=== PATIENT | female | born 1995 | race Caucasian/White ===

== ENCOUNTER → 2017-04-06 | Outpatient (CLI) | payer MEDICAID ==
--- NOTE | 2017-04-06 20:27 | EKG REPORT ---
SEVERITY:- ABNORMAL ECG - SINUS TACHYCARDIA PROBABLE LEFT VENTRICULAR HYPERTROPHY : Confirmed by: David Wolff MD 06-Apr-2017 20:26:37
== END ==
LOC: OD 14:58
PROVIDERS: ATTEND Midwife
DX: F11.19 Opioid abuse with unspecified opioid-induced disorder (principal)
CPT/HCPCS: 93005; 93010

== ENCOUNTER 2017-04-14 15:32 | Outpatient (CLI) | payer MEDICAID ==
--- NOTE | 2017-04-14 16:21 | Non Stress Test Report ---
Non Stress Test Datetime Report Generated by CPN: 04/14/2017 16:21 DEMOGRAPHIC EGA NST: 35.5 INDICATION Indication for Study: Ordered by Provider MONITORING Monitor Explained: Monitor Explained; Test Explained; Patient Verbalized Understanding Time on Monitor: 04/14/2017 15:42 Time off Monitor: 04/14/2017 16:06 NST Duration: 24 NST INTERVENTIONS NST Interventions: PO Hydration Physician Notified NST: P. Leon, CNM BABY A: [id number] BABY A Movement : Present Contraction Frequency : x2 FHR Baseline : 135 Accelerations : 15X15 Decelerations : None Variability : Moderate 6-25bpm NST Review: Meets Criteria for Reactive NST NST Review and Verified By : Joe Joseph RNC NST Results: Reactive NST REPORT Report Trigger: Send Report
== END 2017-04-14 16:09 | disposition home or self-care (01) ==
LOC: LC 15:32
PROVIDERS: ATTEND Student in an Organized Health Care Education/Training Program
PROC: 4A1HXCZ Monitoring of Products of Conception, Cardiac Rate, External Approach (ICD-10-PCS; principal; 2017-04-14)
DX: Z34.93 Encounter for supervision of normal pregnancy, unspecified, third trimester (principal); Z36.89 Encounter for other specified antenatal screening; Z3A.35 35 weeks gestation of pregnancy
CPT/HCPCS: 59025

== ENCOUNTER 2017-04-18 11:11 | Outpatient (CLI) | payer MEDICAID ==
--- NOTE | 2017-04-18 12:15 | Non Stress Test Report ---
Non Stress Test Datetime Report Generated by CPN: 04/18/2017 12:15 DEMOGRAPHIC EGA NST: 36.2 INDICATION Indication for Study: Ordered by Provider MONITORING Monitor Explained: Monitor Explained; Test Explained; Patient Verbalized Understanding Time on Monitor: 04/18/2017 11:41 Time off Monitor: 04/18/2017 12:14 NST Duration: 33 NST INTERVENTIONS NST Interventions: PO Hydration; Meal Given; Reposition Patient BABY A: [id number] BABY A Movement : Present Contraction Frequency : x1 FHR Baseline : 125 Accelerations : 15X15 Decelerations : None Variability : Moderate 6-25bpm NST Review: Meets Criteria for Reactive NST NST Review and Verified By : KIMBERLY Morales Results: Reactive NST REPORT Report Trigger: Send Report
== END 2017-04-18 12:20 | disposition home or self-care (01) ==
LOC: LC 11:11
PROVIDERS: ATTEND Obstetrics & Gynecology
PROC: 4A1HXCZ Monitoring of Products of Conception, Cardiac Rate, External Approach (ICD-10-PCS; principal; 2017-04-18)
DX: Z34.93 Encounter for supervision of normal pregnancy, unspecified, third trimester (principal); Z36.89 Encounter for other specified antenatal screening; Z3A.36 36 weeks gestation of pregnancy
CPT/HCPCS: 59025

== ENCOUNTER 2017-05-04 17:31 | Outpatient (CLI) | payer MEDICAID ==
--- NOTE | 2017-05-04 18:08 | Non Stress Test Report ---
Non Stress Test Datetime Report Generated by CPN: 05/04/2017 18:08 DEMOGRAPHIC EGA NST: 37.4 INDICATION Indication for Study: Decreased Movement; Ordered by Provider MONITORING Monitor Explained: Monitor Explained; Test Explained; Patient Verbalized Understanding Time on Monitor: 04/27/2017 17:40 Time off Monitor: 05/04/2017 18:06 NST Duration: 08421 NST INTERVENTIONS NST Interventions: Reposition Patient Physician Notified NST: Dr Skinner BABY A: [id number] BABY A Movement : Present Contraction Frequency : 0 FHR Baseline : 145 Accelerations : 15X15 Decelerations : None Variability : Moderate 6-25bpm NST Review: Meets Criteria for Reactive NST NST Review and Verified By : BLOSSOM PARDO, RN NST Results: Reactive NST REPORT Report Trigger: Send Report
== END 2017-05-04 18:14 | disposition home or self-care (01) ==
LOC: LC 17:31
PROVIDERS: ATTEND Obstetrics & Gynecology Gynecology
PROC: 4A1HXCZ Monitoring of Products of Conception, Cardiac Rate, External Approach (ICD-10-PCS; principal; 2017-05-04)
DX: O36.8130 Decreased fetal movements, third trimester, not applicable or unspecified (principal); Z3A.38 38 weeks gestation of pregnancy
CPT/HCPCS: 59025

== ENCOUNTER 2017-05-11 20:20 | Inpatient (IN) | payer MEDICAID ==
[2017-05-11 13:09] LABS: ABSOLUTE EOSINOPHILS # (AUTO) 0.1 10^3/uL (0.0-0.6); ABSOLUTE MONOCYTES (AUTO) 0.6 10^3/uL (0.1-1.4); ABSOLUTE NEUT (AUTO) 4.7 10^3/uL (1.7-8.2); BASOPHILS % (AUTO) 0.4 % (0-2); EOSINOPHILS % (AUTO) 1.3 % (0-6); HEMATOCRIT 31.2 % (36.0-47.0); HEMOGLOBIN 9.8 g/dL (12.0-15.5); LYMPHOCYTES % (AUTO) 27.5 % (13-45); MEAN CORPUSCULAR HEMOGLOBIN 22.1 pg (27.0-33.4); MEAN CORPUSCULAR HGB CONC 31.5 g/dL (32.0-36.0); MEAN CORPUSCULAR VOLUME 70 fl (80-97); MONOCYTES % (AUTO) 7.7 % (3-13); PLATELET COUNT 214 10^3/uL (150-450); RED BLOOD COUNT 4.44 10^6/uL (3.72-5.28); RED CELL DISTRIBUTION WIDTH 16.5 % (11.5-14.0); SEGMENTED NEUTROPHILS % (AUTO) 63.1 % (42-78); TOTAL CELLS COUNTED % (AUTO) 100 %; WHITE BLOOD COUNT 7.4 10^3/uL (4.0-10.5)
[2017-05-11 13:15] LABS: APPEARANCE,URINE SLIGHTLY-CLOUDY; BILIRUBIN,URINE NEGATIVE (NEGATIVE); COLOR,URINE YELLOW; GLUCOSE, URINE NEGATIVE (NEGATIVE); KETONES,URINE NEGATIVE (NEGATIVE); LEUKOCYTE ESTERASE,URINE LARGE (NEGATIVE); NITRITE,URINE NEGATIVE (NEGATIVE); PROTEIN,URINE NEGATIVE (NEGATIVE); URINE SPECIFIC GRAVITY 1.009; UROBILINOGEN,URINE NEGATIVE mg/dL (<2.0)
[2017-05-11 13:30] LABS: URINE AMPHETAMINES SCREEN NEGATIVE; URINE BARBITURATES SCREEN NEGATIVE; URINE BENZODIAZEPINES SCREEN NEGATIVE; URINE COCAINE SCREEN NEGATIVE; URINE MARIJUANA (THC) SCREEN NEGATIVE; URINE PHENCYCLIDINE SCREEN NEGATIVE
[2017-05-11 13:46] LABS: URINE METHADONE SCREEN UNCONFIRMED POSITIVE
[2017-05-12] MEDS ORDERED: RINGERS SOLUTION,LACTATED 1,000 ML IV PRN ×2 (02:59→09:14)
[2017-05-12] MEDS ORDERED: OXYTOCIN 10 UNIT/ML VIAL ONE (07:17)
[2017-05-12] MEDS ORDERED: FENTANYL CITRATE INJ/PF 100 MCG/2 ML AMPUL ONE (07:17)
[2017-05-12] MEDS ORDERED: MIDAZOLAM 2 MG/2 ML INJ ONE (07:17)
[2017-05-12] MEDS ORDERED: EPHEDRINE SULFATE INJ 50 MG/1 ML AMPULE ONE (07:17)
[2017-05-12] MEDS ORDERED: OXYTOCIN/NORMAL SALINE 20 UNIT/1,000 ML RTUINJ ONE ×2 (07:17→11:26)
[2017-05-12] MEDS ORDERED: CEFAZOLIN 1 GM/D5W RTU 1 GM/50 ML RTUPB IV ONE (08:30)
[2017-05-12] MEDS ORDERED: CEFAZOLIN 2 GM/D5W RTU 2 GM/50 ML RTUPB IV PRN (08:30)
[2017-05-12] MEDS ORDERED: MORPHINE SULFATE 10 MG/ML INJ IV PRN (08:33)
[2017-05-12] MEDS ORDERED: OXYCODONE-ACETAMINOPHEN 5-325 MG TABLET PO PRN ×3 (08:33→09:14)
[2017-05-12] MEDS ORDERED: FENTANYL CITRATE INJ/PF 100 MCG/2 ML AMPUL IV PRN ×3 (08:33)
[2017-05-12] MEDS ORDERED: PROMETHAZINE HCL INJ 25 MG/1 ML VIAL IV PRN ×3 (08:33→09:14)
[2017-05-12] MEDS ORDERED: MEPERIDINE HCL/PF INJ 25 MG/1 ML DISP.SYRIN IV PRN (08:33)
[2017-05-12] MEDS ORDERED: DIPHENHYDRAMINE HCL 50 MG/ML VIAL IV PRN (08:33)
[2017-05-12] MEDS ORDERED: ACETAMINOPHEN 325 MG TABLET PO PRN (09:14)
[2017-05-12] MEDS ORDERED: OXYTOCIN/NORMAL SALINE 20 UNIT/1,000 ML RTUINJ IV PRN (09:14)
[2017-05-12] MEDS ORDERED: ACETAMINOPHEN 100 ML IV PRN (09:14)
[2017-05-12] MEDS ORDERED: DIPH/PERTUSS(ACELL)/TETANUS VAC/PF 0.5 ML SYR (>=10YO) IM PRN (09:14)
[2017-05-12] MEDS ORDERED: SIMETHICONE 80 MG TAB.CHEW PO PRN (09:14)
[2017-05-12] MEDS ORDERED: MEASLES,MUMPS&RUBELLA VACC/PF 0.5 ML VIAL SUBCUT PRN (09:14)
[2017-05-12] MEDS ORDERED: METHADONE HCL PO SCH (10:00)
[2017-05-12] MEDS ORDERED: KETOROLAC TROMETHAMINE 60 MG/2 ML SDV ONE (10:13)
[2017-05-12] MEDS ORDERED: DEXAMETHASONE SOD PHOSPHATE INJ 4 MG/1 ML VIAL ONE (10:13)
[2017-05-12] MEDS ORDERED: PHENYLEPHRINE HCL INJ/PF 10 MG/1 ML SDV ONE (10:13)
[2017-05-12] MEDS ORDERED: METOCLOPRAMIDE HCL INJ/PF 10 MG/2 ML SDV ONE (10:13)
[2017-05-12] MEDS ORDERED: ONDANSETRON HCL INJ/PF 4 MG/2 ML SDV ONE (10:13)
[2017-05-12] MEDS ORDERED: ACETAMINOPHEN 100 ML IV ONE (10:25)
--- NOTE | 2017-05-12 10:27 | Operative Report ---
Operative Report DATE OF SURGERY: 05/12/17 PREOPERATIVE DIAGNOSIS: Primary for breech and tubal ligation POSTOPERATIVE DIAGNOSIS: Same OPERATION: Primary via low transverse uterine incision and tubal ligation with Filshie clips SURGEON: FRANCESCA DODD ANESTHESIA: Spinal TISSUE REMOVED OR ALTERED: Placenta COMPLICATIONS: None ESTIMATED BLOOD LOSS: 250 INTRAOPERATIVE FINDINGS: Viable female breech position Apgars 8 and 9 weight 9 lbs. 3 oz. PROCEDURE: Patient was taken to the OR and placed in supine position after her spinal anesthesia. She is prepared and draped in sterile fashion. Berger was placed for drainage of the bladder. Low transverse incision was made and carried down the level of the fascia. The fascial incision was made with knife and extended bilaterally with curved Du scissors. The fascia was off the rectus muscles using sharp and blunt dissection. The rectus muscles are in the midline. The peritoneum was entered without incident. Bladder blade was placed in uterine segment was identified. A low transverse incision was made creating a bladder flap. Bladder blade was placed low transverse uterine incision was made with the csafe knife and extended with fingertips. The baby was delivered with some fundal pressure from breech position. Mouth and nose were suctioned free. The cord is doubly clamped and cut. Baby is passed off to the oil analyst in attendance. The placenta was manually extracted with trailing membranes. The uterus was externalized wrapped in a moist lap sponge. Uterine contents wiped free. Uterus was closed with a running locking layer of 0 chromic suture using the second layer to imbricate the first completing a double layer closure of the uterus. The serosa was closed with a running 2-0 chromic stitch. The tubal ligation was carried out by placing Filshie clips across each mid isthmic portion of each fallopian tube. The pelvis was irrigated and suctioned free of fluid the uterus was replaced in the abdomen. The abdominal wall peritoneum was closed with running 2-0 chromic stitch. Fascia was closed with a running 0 Vicryl in 2 segments. Delphine's layer was brought together with 0 plain gut stitch and the skin was closed with running subcuticular 4-0 undyed Vicryl stitch. The wound was dressed mother and baby did well.
--- NOTE | 2017-05-12 11:04 | Delivery Summary ---
Del Sum A-C Datetime Report Generated by CPN: 05/12/2017 11:04 DELIVERY PERSONNEL DELIVERY PERSONNEL: [id number] Delivery Doctor:: Henry Tyler MD Anesthesiologist:: Ric Moreira MD SUPERVISOR PRINTING SHOP:: Lidya Gee CRNA Labor and Delivery Nurse:: Varsha Ansari RNstamp maker Nurse:: MILLY Valencia Regional Construction Manager:: Dr. Eris Fontaine Nurse Practitioner:: NEHAL Spencer Nursery Nurse:: Roger Correa RN Gluing Machine Offbearer/GREEN MARKETING ANALYST: Yesenia Morris CST Gluing Machine Offbearer/GREEN MARKETING ANALYST: Cate Barker, ST MATERNAL INFORMATION Delivery Anesthesia: Spinal Medications After Delivery: Pitocin Bolus-Please Comment; Pitocin Drip 20 Units/1000ml NSS Maternal Complications: None LABOR SUMMARY EDC: 05/14/2017 00:00 No. Babies in Womb: 1 LABOR INFORMATION Steroids Given: None Reason Steroids Not Administered: Not Applicable MEMBRANES Membranes Rupture Method: Artificial Rupture of Membranes: 05/12/2017 09:39 Length of Rupture (hr): 0.00 Amniotic Fluid Color: Clear Amniotic Fluid Amount: Moderate STAGES OF LABOR Stage 3 hr: 0 Stage 3 min: 1 VAGINAL DELIVERY Episiotomy: None Laceration #1: None Laceration Extension #1: N/A Sharps Count Correct: N/A CSECTION DELIVERY Primary Indication: Breech Presentation CSection Urgency: Scheduled CSection Incidence: Primary Labor: N/A Elective: Elective CSection Incision: Lower Uterine Transverse Sterilization Procedure: Ring and Clip BABY A INFORMATION Infant Delivery Date/Time: 05/12/2017 09:39 Method of Delivery: Born in Route : No : N/A Forceps: N/A Vacuum Extraction: N/A Shoulder Dystocia : No PRESENTATION/POSITION BABY A Presentation: Breech Cephalic Presentation: N/A Breech Presentation: Rg PLACENTA INFORMATION BABY A Placenta Delivery Time : 05/12/2017 09:40 Placenta Method of Delivery: Manual Removal Placenta Status: Delivered SCORES BABY A Heart Rate 1 min: >100 bpm Resp Effort 1 min: Good Cry Reflex Irritability 1 min: Cough or Sneeze or Pulls Away Muscle Tone 1 min: Active Motion Color 1 min: Blue/Pale Resuscitation Effort 1 min: Tactile Stimulation SCORE 1 MIN: 8 Heart Rate 5 min: >100 bpm Resp Effort 5 min: Good Cry Reflex Irritability 5 min: Cough or Sneeze or Pulls Away Muscle Tone 5 min: Active Motion Color 5 min: Body [place], Extremities Blue Resuscitation Effort 5 min: N/A SCORE 5 MIN: 9 Resuscitation Effort 10 min: N/A INFORMATION BABY A Gestational Age at Delivery: 39.5 Gestational Status: Full Term- 39- 40.6 Weeks Infant Outcome : Liveborn Condition : Stable Sex: Female IDENTIFICATION BABY A Infant Verification Date/Time: 05/12/2017 09:37 ID Band Number: [id number] Mother's Name Verified: Yes RN Verifying : K Kenney RNC/A Babine RN WEIGHT/LENGTH BABY A Birthweight (gm): 4150 Weight (lb): 9 Weight (oz): 2 Infant Length (in): 21.25 Infant Length (cm): 53.98 CORD INFORMATION BABY A No. Cord Vessels: 3 Nuchal Cord : N/A Cord Blood Taken: Yes-For Eval (Mom's Blood Type - or O+) Suction: Mouth; Nose ASSESSMENT BABY A Complications: None Physical Findings at Delivery: Within Normal Limits Infant Respirations: Appears Normal Skin to Skin: No Regional Construction Manager/ALS Called : Yes Infant Care By: Hayden Correa RN/ Dr. Fontaine Transferred To: Nursery
[2017-05-12] MEDS: DOCUSATE SODIUM 100 MG CAPSULE PO SCH ×2 (11:31→18:14)
[2017-05-12] MEDS: PRENATAL VITAMIN W DHA CAPSULE PO SCH (11:31)
[2017-05-12] MEDS ORDERED: HYDROMORPHONE HCL INJ/PF 2 MG/ML AMPULE ONE (11:54)
[2017-05-12] MEDS: HYDROMORPHONE HCL INJ/PF 2 MG/ML AMPULE IV PRN ×2 (12:20→15:10)
[2017-05-12] MEDS: KETOROLAC TROMETHAMINE INJ/PF 30 MG/1 ML SDV IV SCH ×2 (15:09→22:34)
[2017-05-12] MEDS: OXYCODONE-ACETAMINOPHEN 5-325 MG TABLET PO PRN (17:12)
[2017-05-13] MEDS: OXYCODONE-ACETAMINOPHEN 5-325 MG TABLET PO PRN ×2 (02:50→17:45)
[2017-05-13] MEDS: KETOROLAC TROMETHAMINE INJ/PF 30 MG/1 ML SDV IV SCH (05:58)
[2017-05-13 07:21] LABS: HEMATOCRIT 27.2 % (36.0-47.0); HEMOGLOBIN 8.5 g/dL (12.0-15.5); MEAN CORPUSCULAR HEMOGLOBIN 22.1 pg (27.0-33.4); MEAN CORPUSCULAR HGB CONC 31.3 g/dL (32.0-36.0); MEAN CORPUSCULAR VOLUME 71 fl (80-97); PLATELET COUNT 200 10^3/uL (150-450); RED BLOOD COUNT 3.85 10^6/uL (3.72-5.28); RED CELL DISTRIBUTION WIDTH 16.4 % (11.5-14.0); WHITE BLOOD COUNT 10.1 10^3/uL (4.0-10.5)
--- NOTE | 2017-05-13 09:07 | PDOC PROGRESS REPORT ---
Subjective Progress Note for:: 05/13/17 Subjective:: doing well. ambulating. taking PO without difficulty Reason For Visit: O82 MATERNAL CARE FOR UNSP TYPE SCAR FROM , Z30.2 Physical Exam - Physical Exam Vital Signs: Temp Pulse Resp BP Pulse Ox 98.1 F 94 18 131/79 H 99 05/13/17 07:43 05/13/17 07:43 05/13/17 07:43 05/13/17 07:43 05/13/17 07:43 Intake & Output 05/12/17 05/13/17 05/14/17 06:59 06:59 06:59 Intake Total 1050 Output Total 2500 Balance -1450 Weight 109.1 kg General appearance: PRESENT: no acute distress, cooperative GI/Abdominal exam: PRESENT: soft - incision c/d/intact no evidence of breakdown. Result Laboratory Results: 05/13/17 06:29 05/13/17 06:29 WBC 10.1 RBC 3.85 Hgb 8.5 L Hct 27.2 L MCV 71 L MCH 22.1 L MCHC 31.3 L RDW 16.4 H Plt Count 200 Assessment & Plan - Diagnosis (1) Qualifiers: Weeks of gestation: 39 weeks Qualified Code(s): Z3A.39 - 39 weeks gestation of Is this a current diagnosis for this admission?: Yes (2) delivery delivered Is this a current diagnosis for this admission?: Yes - Time Time Spent with patient: Less than 15 minutes - Plan Summary Plan Summary: plan for discharge home in AM
[2017-05-13] MEDS: METHADONE HCL 10 MG TABLET PO SCH (09:38)
[2017-05-13] MEDS: PRENATAL VITAMIN W DHA CAPSULE PO SCH (09:38)
[2017-05-13] MEDS: DOCUSATE SODIUM 100 MG CAPSULE PO SCH ×2 (09:38→17:45)
[2017-05-13] MEDS: IBUPROFEN 800 MG TABLET PO SCH ×2 (11:15→17:44)
[2017-05-14] MEDS: IBUPROFEN 800 MG TABLET PO SCH ×2 (00:01→07:17)
[2017-05-14] MEDS: METHADONE HCL 10 MG TABLET PO SCH (09:39)
[2017-05-14] MEDS: DOCUSATE SODIUM 100 MG CAPSULE PO SCH (09:39)
[2017-05-14] MEDS: PRENATAL VITAMIN W DHA CAPSULE PO SCH (09:39)
--- NOTE | 2017-05-14 10:22 | PDOC DISCHARGE SUMMARY ---
Final Diagnosis Discharge Date: 05/14/17 - Final Diagnosis (1) delivery delivered Is this a current diagnosis for this admission?: Yes Discharge Data - Discharge Medication Home Medications: Methadone HCl [Methadose] 140 mg PO DAILY 04/14/17 Reason(s) for Admission: Ceasarean Section-Primary Intrapartum Procedure(s): : Low Cervical, Transverse - Diagnosis Test Laboratory: Temp Pulse Resp BP Pulse Ox 97.2 F 92 18 138/62 H 100 05/14/17 07:43 05/14/17 07:43 05/14/17 07:43 05/14/17 07:43 05/14/17 07:43 05/11/17 05/11/17 05/13/17 12:20 12:25 06:29 RBC 4.44 3.85 Hgb 9.8 L 8.5 L Hct 31.2 L 27.2 L Urine Opiates Screen NEGATIVE - Discharge information/Instructions Discharge Activity: Activity As Tolerated Discharge Diet: Regular Disposition: HOME, SELF-CARE Follow up with: [facility] in: 1
[2017-05-14 12:28] VITALS: BP 110/66
== END 2017-05-14 12:48 | disposition home or self-care (01) | DRG 765 ==
LOC: 2N 20:20
PROVIDERS: ADMIT Obstetrics & Gynecology; ATTEND Obstetrics & Gynecology
PROC: 10D00Z1 Extraction of Products of Conception, Low, Open Approach (ICD-10-PCS; principal; 2017-05-12)
PROC: 0UL70CZ Occlusion of Bilateral Fallopian Tubes with Extraluminal Device, Open Approach (ICD-10-PCS; 2017-05-12)
DX: O32.1XX0 Maternal care for breech presentation, not applicable or unspecified (principal); O99.324 Drug use complicating childbirth; F11.90 Opioid use, unspecified, uncomplicated; O99.214 Obesity complicating childbirth; O24.429 Gestational diabetes mellitus in childbirth, unspecified control; Z3A.39 39 weeks gestation of pregnancy; Z37.0 Single live birth; Z30.2 Encounter for sterilization
CPT/HCPCS: 1961; 36415; 80307; 81001; 82962; 85025; 85027; 86850; 86900; 86901; 94799; J0131; J1100; J1170; J1885; J2250; J2370; J2405; J2590; J2765; J3010; J3490; J7120